=== PATIENT | female | born 1985 | race Asian ===

== ENCOUNTER 2023-06-22 16:52 | Inpatient (IN) ==
[2023-06-24] MEDS: LACTATED RINGER'S 1,000 ML IV PRN ×3 (08:20→20:44)
[2023-06-24] MEDS ORDERED: LIDOCAINE 1% LOCAL 20 ML VIAL INFIL PRN (08:24)
[2023-06-24] MEDS ORDERED: OXYTOCIN 30 UNITS/NSS 30 UNITS/500 ML BAG IV PRN ×2 (08:24→08:32)
[2023-06-24] MEDS ORDERED: SODIUM CHLORIDE 0.9% 250 ML IV PRN (09:24)
[2023-06-24 09:29] LABS: Hematocrit (blood only) 35.1 % (37.0-47.0); Hemoglobin 11.8 g/dl (12.0-16.0); Mean Corpuscular Hgb Conc 33.6 g/dL (32.0-36.0); Mean Corpuscular Volume 89.3 fL (80.0-100.0); Mean Platelet Volume 10.5 fL (9.4-12.4); Platelet Count 203 K/uL (130-400); RDW Coefficient of Variation 13.3 % (11.5-14.5); RDW Standard Deviation 43.8 fL (36.4-46.3); Red Blood Count 3.93 M/uL (4.20-5.40); White Blood Count 8.27 K/ul (4.8-10.8)
[2023-06-24] MEDS ORDERED: ePHEDrine sulfate 50 MG/ML AMP ONE (11:53)
[2023-06-24] MEDS ORDERED: fentaNYL citrate PF 100 MCG/2 ML VIAL ONE (11:53)
[2023-06-24] MEDS ORDERED: BUPIVACAINE 0.25% PF 30 ML VIAL ONE (11:54)
[2023-06-24] MEDS ORDERED: LIDOCAINE 2%/EPINEPHRINE 1:200,000 20 ML PF ONE (11:54)
[2023-06-24] MEDS ORDERED: SODIUM CHLORIDE 0.9% PF INJ 10 ML VIAL ONE (11:54)
[2023-06-24] MEDS ORDERED: fentANYL 2 MCG/ML BUPIVacaine 0.125%-NSS 100ML BAG ONE (11:54)
--- NOTE | 2023-06-24 12:29 | Anesthesiology Consultation ---
Date of Service June 24, 2023 Assessment & Plan Chart Review Chart Review: Patient NOT seen in Pre Admission Testing and Acceptable Risk for Labor Epidural Consults Requested none ASA ASA2 Proposed Anesthesia Anesthesia Type: Labor Epidural Risk / Benefits Reviewed With: PT / POA / Parent / Guardian, Accepts Plan and Informed Consent Obtained History Height/Weight Height: 5 ft Weight: 98.612 kg Allergies Allergy/AdvReac Type Severity Reaction Status Date / Time No Known Drug Allergies Allergy Verified 06/21/23 13:10 Medications Home Medications Medication Instructions Recorded Confirmed Last Taken -rrvf fum-folic ac-om3 1 pkg PO DAILY 12/04/22 06/24/23 06/23/23 06:00 [One Daily ] levothyroxine 25 mcg tablet 37.5 mcg (1.5 x 25 mcg) PO DAILY 06/10/23 06/24/23 06/23/23 06:00 #30 tabs Active Medications Generic Name Dose Route Start Last Admin Trade Name Freq PRN Reason Stop Dose Admin Lactated Ringer's 1,000 mls @ 125 mls/hr 06/24/23 08:24 06/24/23 12:20 Lr IV 06/26/23 08:23 125 mls/hr .Q8H PRN Administration L&D Protocol Protocol Oxytocin 30 units in 500 mls @ 6 mls/hr 06/24/23 08:32 06/24/23 10:30 Pitocin 30 Units/Nss IV 06/26/23 08:31 0.36 units/hr .Q24H PRN 6 mls/hr Labor Induction/Augmentation Titration Protocol 0.36 UNITS/HR Past Medical History Medical History (Updated 06/21/23 @ 20:07 by Felicitas Angeles MD, FACOG) Hypothyroid Exercise / Class Metabolic Activity II 4-5 Yardwork/Stairs/Walk up hill Past Family History Family History Sister Thyroid disease Father Hypertension Denies family history of Ovarian cancer Prostate cancer Myocardial infarction Breast cancer Lung cancer Colorectal cancer Cancer Past Surgical History Surgical History No history of previous surgery Past Anesthesia History No Hx of Anesthesia Complications and No Family Hx of Anesthesia Complications History of PONV No Hx of PONV and No Hx of Motion Sickness Social History Smoking Status: Never smoker Do You Dip or Chew Tobacco: No Hx Alcohol Use: No Hx Substance Use: No Physical Exam Vital Signs Last Vital Signs Temp 36.8 C 06/24/23 07:29 Pulse 67 06/24/23 11:05 Resp 19 06/24/23 07:29 BP 130/73 06/24/23 11:05 O2 Del Method Room Air 06/24/23 07:29 ENMT Mouth: no dentition abnormality Thyromental Distance: > or= 3.5 Finger Breadths Mallampati Class: II Neck normal visual inspection Respiratory normal respiratory effort Auscultation: lungs clear to auscultation bilaterally Cardiovascular Rate/Rhythm: regular rate and regular rhythm Psychiatric Orientation: alert Testing Laboratory Results 06/24/23 08:29 Blood Type O Positive 06/24/23 08:29 Antibody Screen NEGATIVE 06/24/23 08:29
[2023-06-24] MEDS ORDERED: NALOXONE HCL 0.4 MG/1 ML VIAL/CARP IV PRN (12:48)
[2023-06-24] MEDS ORDERED: SODIUM CHLORIDE 0.9% PF INJ 10 ML VIAL EPI STA (12:48)
[2023-06-24] MEDS ORDERED: PROMETHAZINE HCL 6.25 MG in SODIUM CHLORIDE 0.9% 50 ML IV PRN (12:48)
[2023-06-24] MEDS ORDERED: fentaNYL citrate PF 100 MCG/2 ML VIAL EPI STA (12:48)
[2023-06-24] MEDS ORDERED: fentANYL 2 MCG/ML BUPIVacaine 0.125%-NSS 100ML BAG EPI PRN (12:48)
[2023-06-24] MEDS ORDERED: LIDOCAINE 2% MPF LOCAL 5 ML VIAL EPI PRN (12:48)
[2023-06-24] MEDS ORDERED: diphenhydrAMINE 50 MG/ML VIAL IV PRN (12:48)
[2023-06-24] MEDS ORDERED: ROPIVACAINE 0.5% PF 5 MG/ML 20 ML VIAL EPI PRN (12:48)
[2023-06-24] MEDS ORDERED: BUPIVACAINE 0.25% PF 30 ML VIAL EPI STA (12:48)
[2023-06-24] MEDS ORDERED: NALOXONE HCL 1 MG in SODIUM CHLORIDE 0.9% 1,000 ML IV PRN (12:48)
[2023-06-24] MEDS ORDERED: NALBUPHINE HCL 5 MG in SYRINGE 0 ML IV PRN (12:48)
[2023-06-24] MEDS ORDERED: LIDOCAINE 2%/EPINEPHRINE 1:200,000 20 ML PF EPI STA (12:48)
[2023-06-24] MEDS ORDERED: BUPIVACAINE 0.25% PF 30 ML VIAL EPI PRN (12:48)
[2023-06-24] MEDS ORDERED: fentaNYL citrate PF 100 MCG/2 ML VIAL EPI PRN (12:48)
[2023-06-24] MEDS ORDERED: ePHEDrine sulfate 50 MG/ML AMP IV PRN (12:48)
[2023-06-24] MEDS ORDERED: ONDANSETRON INJ 2 MG/ML 2 ML VIAL IV PRN (12:48)
[2023-06-24] MEDS ORDERED: SODIUM CHLORIDE 0.9% PF INJ 10 ML VIAL EPI PRN (12:48)
--- NOTE | 2023-06-24 18:07 | Labor Progress Brief Note ---
Date of Service June 24, 2023 Subjective Reason For Note: Routine Evaluation Assessment & Plan (1) Polyhydramnios affecting : (2) 40 weeks gestation of : Plan: Mima is a 37-year-old G1, P0 currently at 41 weeks 0 days gestational age presents for induction of labor. 1. Fetus: Category 1 tracing 2. Labor: Status post cervical ripening Haddad. Status post spontaneous rupture membranes. Continue Pitocin. Minimal progression noted. IUPC placed as the frequency of contractions is q3 minutes 3. GBS negative 4. Vitals within normal limits. (3) Hypothyroid in , antepartum: (4) Elderly primigravida: Trimester: third trimester Qualified Code(s): O09.513 - Supervision of elderly primigravida, third trimester Admission and Anticipated Discharge Date Admission Date: June 24, 2023 Physical Exam Genitourinary: Manual OB Exam: + cervical dilation (4-5), + cervical effacement 80%, + station -2 and + amniotic fluid (Questionable thin meconium) Results & Data Vital Signs (Past 12 Hours) Vital Signs Temp Pulse Resp BP Pulse Ox O2 Del Method 06/24/23 17:58 59 L 100 06/24/23 17:53 55 L 112/55 L 98 06/24/23 17:48 58 L 98 06/24/23 17:43 56 L 100 06/24/23 17:40 58 L 84 L 06/24/23 17:39 57 L 126/59 L 06/24/23 17:38 59 L 98 06/24/23 17:33 53 L 100 06/24/23 17:28 53 L 100 06/24/23 17:23 96 06/24/23 17:23 57 L 06/24/23 17:23 57 L 128/63 06/24/23 17:19 66 87 L 06/24/23 17:18 61 97 06/24/23 17:13 55 L 94 06/24/23 17:09 62 06/24/23 17:09 62 110/52 L 85 L 06/24/23 17:08 63 91 06/24/23 17:03 59 L 94 06/24/23 16:58 58 L 97 06/24/23 16:55 56 L 108/57 L 06/24/23 16:53 56 L 95 06/24/23 16:51 21 06/24/23 16:51 36.7 C 21 06/24/23 16:48 60 100 06/24/23 16:47 59 L 86 L 06/24/23 16:43 54 L 94 06/24/23 16:39 56 L 87 L 06/24/23 16:38 65 100 06/24/23 16:33 53 L 96 06/24/23 16:28 55 L 95 06/24/23 16:23 94 06/24/23 16:23 56 L 06/24/23 16:23 55 L 119/69 06/24/23 16:18 55 L 97 06/24/23 16:13 56 L 98 06/24/23 16:08 72 114/67 94 06/24/23 16:03 60 97 06/24/23 15:58 57 L 98 06/24/23 15:53 58 L 128/78 98 06/24/23 15:48 64 96 06/24/23 15:43 54 L 98 06/24/23 15:39 62 117/66 06/24/23 15:38 55 L 98 06/24/23 15:33 54 L 97 06/24/23 15:28 56 L 94 06/24/23 15:23 57 L 115/61 96 06/24/23 15:18 64 96 06/24/23 15:13 54 L 96 06/24/23 15:09 59 L 116/69 06/24/23 15:08 55 L 97 06/24/23 15:03 56 L 99 06/24/23 14:58 67 92 06/24/23 14:53 96 06/24/23 14:53 62 06/24/23 14:53 62 110/56 L 06/24/23 14:48 52 L 95 06/24/23 14:43 51 L 96 06/24/23 14:38 97 06/24/23 14:38 61 06/24/23 14:38 63 111/53 L 06/24/23 14:33 52 L 96 06/24/23 14:28 53 L 97 06/24/23 14:25 51 L 110/59 L 06/24/23 14:23 53 L 97 06/24/23 14:18 54 L 97 06/24/23 14:13 55 L 97 06/24/23 14:08 95 06/24/23 14:08 75 06/24/23 14:08 68 96/55 L 06/24/23 14:03 56 L 97 06/24/23 13:58 52 L 97 06/24/23 13:53 57 L 92/52 L 97 06/24/23 13:48 53 L 97 06/24/23 13:43 76 97 06/24/23 13:38 58 L 97 06/24/23 13:37 19 06/24/23 13:37 36.7 C 19 06/24/23 13:35 82 91 06/24/23 13:33 60 97 06/24/23 13:32 65 111/60 06/24/23 13:28 57 L 96 06/24/23 13:24 74 94 06/24/23 13:23 73 97 06/24/23 13:22 69 119/75 06/24/23 13:19 74 93 06/24/23 13:18 72 95 06/24/23 13:13 79 121/66 97 06/24/23 13:08 66 98 06/24/23 13:03 66 97 06/24/23 13:02 74 128/63 06/24/23 12:58 66 98 06/24/23 12:53 71 100 06/24/23 12:52 77 93 06/24/23 12:51 69 130/59 L 06/24/23 12:49 69 130/64 06/24/23 12:48 70 98 06/24/23 12:47 69 126/60 06/24/23 12:45 60 120/64 06/24/23 12:43 62 96 06/24/23 12:42 61 141/70 H 06/24/23 12:41 74 92 06/24/23 12:38 67 138/74 99 06/24/23 12:33 98 06/24/23 12:33 62 06/24/23 12:33 62 141/71 H 06/24/23 11:05 67 130/73 06/24/23 10:06 59 L 109/56 L 06/24/23 07:37 71 129/78 06/24/23 07:29 36.8 C 19 Room Air Coding Level of Care Code None Diagnoses Polyhydramnios affecting O40.9XX0 40 weeks gestation of Z3A.40 Hypothyroid in , antepartum O99.280; E03.9 Primigravida of advanced maternal age in third trimester O09.513 Trimester: third trimester
--- NOTE | 2023-06-24 18:11 | History & Physical Report ---
Date of Service June 24, 2023 Information in note is from time of admission at 8:30 AM Assessment & Plan (1) 40 weeks gestation of : Plan: Mima is a 37-year-old G1, P0 currently at 41 weeks 0 days gestational age presents for induction of labor. 1. Fetus: Category 1 tracing 2. Labor: Status post cervical ripening Haddad. Will start oxytocin per regular protocol and AROM when indicated 3. GBS negative 4. Vitals within normal limits. (2) Polyhydramnios affecting : (3) Hypothyroid in , antepartum: (4) Elderly primigravida: Admission and Anticipated Discharge Date Admission Date: June 24, 2023 History of Present Illness Primary Care Provider: SAMSON Eden Brendan is a 37-year-old G1, P0 currently at 41 weeks gestational age presents for induction of labor. complicated by: AMA Weekly NST's @ 36 weeks Hypothyroid *Check TFTs Q4wks 3vv pulmonary appear dilated, 3tv limited, LV echogenic foci on f/u anatomy * [place] (03/18/23 [place] [facility] [place] * repeat echo 04/13/23-> normal OB Labs: Blood Type O Positive 11/05/22 Antibody Screen NEGATIVE 11/05/22 Hemoglobin 11.9 g/dl (12.0-16.0) L 03/26/23 Hematocrit 36.0 % (37.0-47.0) L 03/26/23 Mean Corpuscular Volume 84.9 fL (80.0-100.0) 11/05/22 Platelet Count 335 K/uL (130-400) 11/05/22 Rubella IgG Antibody Equivocal (Immune) L 11/05/22 Rapid Plasma Reagin Nonreactive (Nonreactive) 11/05/22 Hepatitis B Surface Antigen. NON-REACTIVE (NON-REACTIVE) 11/05/22 Hepatitis C Antibody (EIA) NON-REACTIVE (NON-REACTIVE) 11/05/22 HIV (1&2) Ag and Ab Confirmation NON-REACTIVE (NON-REACTIVE) 11/05/22 Glucose 1 Hour 50 gm Load 158 mg/dl (70-130) H 03/26/23 OB Optional Labs: Chlamydia trachomatis RNA Not Detected (NotDetected) 11/05/22 Neisseria gonorrhoeae RNA Not Detected (NotDetected) 11/05/22 Thyroid Stimulating Hormone (TSH) 1.915 uIu/ml (0.300-4.500) 06/01/23 Labs Reviewed: cfdna-low risk--mln Allergies Allergy/AdvReac Type Severity Reaction Status Date / Time No Known Drug Allergies Allergy Verified 06/21/23 13:10 Home Medications Medication Instructions Recorded Confirmed Type [id number] fum-folic ac-om3 1 pkg PO DAILY 12/04/22 06/24/23 History [One Daily ] levothyroxine 25 mcg tablet 37.5 mcg (1.5 x 25 mcg) PO DAILY 06/10/23 06/24/23 Rx #30 tabs Patient History Medical History (Updated 06/24/23 @ 19:02 by Maykel Lawson MD) Hypothyroid Surgical History No history of previous surgery Family History Sister Thyroid disease Father Hypertension Denies family history of Ovarian cancer Prostate cancer Myocardial infarction Breast cancer Lung cancer Colorectal cancer Cancer Social History Smoking Status: Never smoker Second Hand Exposure: No; Do You Dip or Chew Tobacco: No; Hx Alcohol Use: No Hx Substance Use: No Preferred Language: Setswana Communication Ability: Effective Visual Impairment: No Limitations Hearing Ability: Normal Skiver Blockers Required: No Beliefs That Will Affect Care: None marital status: marital status details: Conor (37) [phone] Current Living Situation: Spouse Current Living Situation Comment: lives with spouse, no pets current occupational status: unemployed How many Children do You have: 0 How many Children do You have Comment: currently with 1st child Other Information That Helps Us Care for You: No Feels Safe at Home: Yes Childhood Exposure to Second-Hand Smoke: No caffeine: Yes Dental Care, Regularly: No Physical Activity Frequency: Does not Exercise Seatbelt Use: always Sunscreen Use: Yes Assistive Devices: None Physical Exam Genitourinary: normal external appearance OB Exam Abdomen: + vertex Manual OB Exam: + cervical dilation (3.5), + cervical effacement 80% and + station high OB Exam Monitor Tracing: + external FHT monitor used, + external uterine monitor used, + category I and + normal FHT variability; no early decelerations present, no late decelerations present and no variable decelerations Results & Data Vital Signs (Past 12 Hours) Vital Signs Temp Pulse Resp BP Pulse Ox O2 Del Method 06/24/23 18:03 53 L 97 06/24/23 17:58 59 L 100 06/24/23 17:53 55 L 112/55 L 98 06/24/23 17:48 58 L 98 06/24/23 17:43 56 L 100 06/24/23 17:40 58 L 84 L 06/24/23 17:39 57 L 126/59 L 06/24/23 17:38 59 L 98 06/24/23 17:33 53 L 100 06/24/23 17:28 53 L 100 06/24/23 17:23 96 06/24/23 17:23 57 L 06/24/23 17:23 57 L 128/63 06/24/23 17:19 66 87 L 06/24/23 17:18 61 97 06/24/23 17:13 55 L 94 06/24/23 17:09 62 06/24/23 17:09 62 110/52 L 85 L 06/24/23 17:08 63 91 06/24/23 17:03 59 L 94 06/24/23 16:58 58 L 97 06/24/23 16:55 56 L 108/57 L 06/24/23 16:53 56 L 95 06/24/23 16:51 21 06/24/23 16:51 36.7 C 21 06/24/23 16:48 60 100 06/24/23 16:47 59 L 86 L 06/24/23 16:43 54 L 94 06/24/23 16:39 56 L 87 L 06/24/23 16:38 65 100 06/24/23 16:33 53 L 96 06/24/23 16:28 55 L 95 06/24/23 16:23 94 06/24/23 16:23 56 L 06/24/23 16:23 55 L 119/69 06/24/23 16:18 55 L 97 06/24/23 16:13 56 L 98 06/24/23 16:08 72 114/67 94 06/24/23 16:03 60 97 06/24/23 15:58 57 L 98 06/24/23 15:53 58 L 128/78 98 06/24/23 15:48 64 96 06/24/23 15:43 54 L 98 06/24/23 15:39 62 117/66 06/24/23 15:38 55 L 98 06/24/23 15:33 54 L 97 06/24/23 15:28 56 L 94 06/24/23 15:23 57 L 115/61 96 06/24/23 15:18 64 96 06/24/23 15:13 54 L 96 06/24/23 15:09 59 L 116/69 06/24/23 15:08 55 L 97 06/24/23 15:03 56 L 99 06/24/23 14:58 67 92 06/24/23 14:53 96 06/24/23 14:53 62 06/24/23 14:53 62 110/56 L 06/24/23 14:48 52 L 95 06/24/23 14:43 51 L 96 06/24/23 14:38 97 06/24/23 14:38 61 06/24/23 14:38 63 111/53 L 06/24/23 14:33 52 L 96 06/24/23 14:28 53 L 97 06/24/23 14:25 51 L 110/59 L 06/24/23 14:23 53 L 97 06/24/23 14:18 54 L 97 06/24/23 14:13 55 L 97 06/24/23 14:08 95 06/24/23 14:08 75 06/24/23 14:08 68 96/55 L 06/24/23 14:03 56 L 97 06/24/23 13:58 52 L 97 06/24/23 13:53 57 L 92/52 L 97 06/24/23 13:48 53 L 97 06/24/23 13:43 76 97 06/24/23 13:38 58 L 97 06/24/23 13:37 19 06/24/23 13:37 36.7 C 19 06/24/23 13:35 82 91 06/24/23 13:33 60 97 06/24/23 13:32 65 111/60 06/24/23 13:28 57 L 96 06/24/23 13:24 74 94 06/24/23 13:23 73 97 06/24/23 13:22 69 119/75 06/24/23 13:19 74 93 06/24/23 13:18 72 95 06/24/23 13:13 79 121/66 97 06/24/23 13:08 66 98 06/24/23 13:03 66 97 06/24/23 13:02 74 128/63 06/24/23 12:58 66 98 06/24/23 12:53 71 100 06/24/23 12:52 77 93 06/24/23 12:51 69 130/59 L 06/24/23 12:49 69 130/64 06/24/23 12:48 70 98 06/24/23 12:47 69 126/60 06/24/23 12:45 60 120/64 06/24/23 12:43 62 96 06/24/23 12:42 61 141/70 H 06/24/23 12:41 74 92 06/24/23 12:38 67 138/74 99 06/24/23 12:33 98 06/24/23 12:33 62 06/24/23 12:33 62 141/71 H 06/24/23 11:05 67 130/73 06/24/23 10:06 59 L 109/56 L 06/24/23 07:37 71 129/78 06/24/23 07:29 36.8 C 19 Room Air Coding Level of Care Code None Diagnoses 40 weeks gestation of Z3A.40 Polyhydramnios affecting O40.9XX0 Hypothyroid in , antepartum O99.280; E03.9 Primigravida of advanced maternal age in third trimester O09.513 Trimester: third trimester (4) Elderly primigravida Trimester: third trimester Qualified Code(s): O09.513 - Supervision of elderly primigravida, third trimester
[2023-06-25] MEDS ORDERED: bisacodyL 10 MG SUPP PR PRN (01:16)
[2023-06-25] MEDS ORDERED: HYDROCORTISONE ACETATE 25 MG SUPP PR PRN (01:16)
[2023-06-25] MEDS ORDERED: OXYTOCIN 30 UNITS/NSS 30 UNITS/500 ML BAG IV PRN (01:16)
[2023-06-25] MEDS ORDERED: miSOPROStoL 200 MCG TAB PR ONE (01:16)
[2023-06-25] MEDS ORDERED: BENZOCAINE 20% SPRY 85 APPLN/85 GM CAN EXT PRN (01:16)
[2023-06-25] MEDS ORDERED: ACETAMINOPHEN 325 MG TAB PO PRN (01:16)
[2023-06-25] MEDS ORDERED: DIPHTHERIA/TETANUS/PERTUSSIS Vaccine (Tdap, Age 7+yrs) 0.5mL SYR/VL IM ONE (01:16)
--- NOTE | 2023-06-25 01:18 | Delivery Summary ---
Vaginal Delivery Summary Date of Service June 25, 2023 Vaginal Delivery Summary and 2nd Degree LAC Patient progressed to 10 cm dilated 100% effaced +2 station pushed over intact perineum with epidural anesthesia and delivered a viable with weight and Apgars pending. Head of the delivered in HELEN position and transition to right transverse. Body and shoulders quickly followed. was noted to be vigorous soon after delivery and a 1 minute delayed cord clamping was initiated. Cord was then double clamped and cut. Cord blood was obtained. Attention was turned to delivery of the placenta was delivered intact three-vessel cord with gentle cord traction. Inspection of the perineum vagina and cervix there is noted to be a second-degree perineal laceration which was repaired with a traditional crown stitch using 3-0 Vicryl. Needle sponge and instrument counts were correct at the completion of the case. Both mother and stable in the immediate postdelivery period. Estimated blood loss of 300 mL. No complications noted with delivery [facility] Vaginal Delivery Charge Delivery Type Details: and 2nd Degree LAC
[2023-06-25] MEDS: IBUPROFEN 600 MG TAB PO PRN ×4 (02:48→20:19)
--- NOTE | 2023-06-25 04:02 | Anesthesia Procedure Note ---
Date of Service June 25, 2023 Anesthesia Post Epidural Note Vital Signs Vital Signs: Temp Pulse Resp BP Pulse Ox O2 Del Method 37.6 C H 87 18 119/58 L 97 Room Air 06/25/23 03:12 06/25/23 03:10 06/25/23 03:12 06/25/23 03:10 06/25/23 03:10 06/25/23 03:10 Pain Intensity Abdomen: Pain Intensity: 0 Episiotomy/Laceration: Pain Intensity: 6 Notes Mental Status: alert / awake / arousable Nausea / Vomiting: adequately controlled Pain: adequately controlled Airway Patency, RR, SpO2: stable & adequate BP & HR: stable & adequate Hydration State: stable & adequate Neuraxial Anesthesia: was administered and sensory block is resolving Anesthetic Complications: no major complications apparent and Pt Satisfied with anesthetic care Epidural: Removed without complications and With tip intact
[2023-06-25] MEDS: LEVOTHYROXINE SODIUM 25 MCG TABLET PO SCH (06:49)
[2023-06-25] MEDS: FERROUS SULFATE 325 MG TAB PO SCH (08:02)
[2023-06-25] MEDS: PRENATAL VITAMIN 1 TAB PO SCH (08:02)
[2023-06-25] MEDS: DOCUSATE SODIUM 100 MG CAP PO SCH ×2 (08:02→20:19)
[2023-06-26] MEDS: LEVOTHYROXINE SODIUM 25 MCG TABLET PO SCH (06:01)
[2023-06-26 06:54] LABS: Hematocrit (blood only) 24.1 % (37.0-47.0)
[2023-06-26] MEDS ORDERED: MEASLES, MUMPS & RUBELLA VIRUS VACCINE (MMR) VIAL SQ ONE (07:53)
--- NOTE | 2023-06-26 07:57 | Obstetrical Progress Note ---
Date of Service <Miladys Ding MD - Last Filed: 06/26/23 07:57> June 26, 2023 Assessment & Plan <Miladys Ding MD - Last Filed: 06/26/23 07:57> (1) Encounter for care after hospital delivery: Patient with the above mentioned history and findings was evaluated at bedside and found awake, alert, oriented in all spheres, afebrile, and in no acute distress. Vital signs showed no fever and blood pressures remained stable. Her blood type is O positive and most recent hemoglobin is 8.0 g/dL. She has been able to ambulate and denies having lightheadedness, dizziness, tachycardia, palpitations, or any other symptom. VS not showing recorded episodes of tachycardia today. She is GBS negative and rubella equivocal. MMR vaccine to be given prior to her discharge. Overall, patient is doing well clinically and meeting the desired milestones. Since she is clinically and hemodynamically stable, will discharge today. she was counseled to make an appointment with her OB in 6 weeks for her routine pp evaluation. Discharge instructions discussed. All questions answered. <Lisandra Stein MD, FACOG - Last Filed: 06/26/23 08:06> (1) Encounter for care after hospital delivery: Subjective <Miladys Ding MD - Last Filed: 06/26/23 07:57> Hum is a 37 y/o female who is now PPD # 1 following at 41 0/7 weeks. Reports feeling well overall this morning. Refers mild abdominal cramping & 3/10 pain well managed on analgesics. Voiding spontaneously. Has passed flatus but no bowel movements yet. Tolerating meals overnight and able to ambulate some. Some persistent lochia with some improvement this morning. . Constitutional: no fever, no chills or no sweats Denies shortness of breath or difficulty breathing Cardiovascular: no chest pain or no palpitations Breast: no breast pain Genitourinary (female): no dysuria Neurologic: no headache(s) Denies changes in vision Physical Exam <Miladys Ding MD - Last Filed: 06/26/23 07:57> General: Alert. Oriented to person, time, and place. Afebrile. No acute distress. Eyes: pupils equal and reactive to light bilaterally, extraocular movements intact. Cardiac: Regular rate and rhythm, no murmurs/rubs/gallops. Respiratory: Clear to auscultation bilaterally a/p, no wheezes/rales/rhonchi. No increased work of breathing. Symmetrical chest rise. No respiratory distress. Abdomen: Soft, nontender, nondistended. Bowel sounds present. Uterus: Uterine fundus firm, non-tender, and palpable below umbilicus. Lower Extremities: Mild bilateral LE swelling. No deep calf pain. Ani's negative bilaterally. Psych: Euthymic affect. Mood and affect congruence. Regular speech rate and content. Results & Data <Miladys Ding MD - Last Filed: 06/26/23 07:57> Vital Signs (Past 12 Hours) Vital Signs Temp Pulse Resp BP Pulse Ox O2 Del Method 06/25/23 23:09 36.9 C 85 18 125/71 98 Room Air Supervising Physician <Lisandra Stein MD, FACOG - Last Filed: 06/26/23 08:06> Co-Signing Physician Notes Resident Physician Supervision Note: I interviewed and examined the patient. Discussed with Dr. Ding and agree with findings and plan as documented in the note. Any exceptions or clarifications are listed here: [None] Documented By: Lisandra Stein MD, FACOG
[2023-06-26] MEDS: DOCUSATE SODIUM 100 MG CAP PO SCH (09:17)
[2023-06-26] MEDS: PRENATAL VITAMIN 1 TAB PO SCH (09:17)
[2023-06-26] MEDS: IBUPROFEN 600 MG TAB PO PRN (09:17)
[2023-06-26] MEDS: FERROUS SULFATE 325 MG TAB PO SCH (09:17)
[2023-06-26] MEDS ORDERED: bisacodyL 5 MG TABEC PO SCH (20:00)
== END 2023-06-26 17:26 | disposition home or self-care (01) | DRG 807 ==
LOC: 4S1 06-24 07:22 → 4E2 06-25 03:29